=== PATIENT | female | born 1970 | race Caucasian/White ===

== ENCOUNTER 2024-02-06 00:45 | Day surgery (SDC) | payer BC, SELFPAY ==
[2024-01-31 09:17] VITALS: BMI 45.8
--- NOTE | 2024-01-31 09:25 | PC.NURSE ---
Report to the Outpatient Waiting Room, entrance under the green pavilion located off [facility], at time _0600 on date _02/06/24_. Planned Procedure Time: 0730_. Time changes happen often and if your time is changed the preop area will call you the afternoon before. - You and your visitor will be asked to self-screen and do not enter if you have any COVID symptoms. - A mask is optional within the hospital at this time. Patients may have clear liquids (water, carbonated beverages, clear teas, apple juice) until 3 hours prior to surgery with a maximum of 20 ounces. - No food from midnight until time of surgery - Infants may have breast milk until 4 hours before surgery, formula 6 hours prior to surgery. - Children will be allowed to drink immediately following surgery. If applicable, please bring a bottle or sippy cup to assist with drinking. Juice, water, soda, and popsicles are readily available. For infants on formula, please bring formula the day of surgery. Pacifiers are allowed. Take the following medications with a SIP of water the morning of surgery: LEVOTHYROXINE DO NOT STOP ANY OF YOUR OTHER PRESCRIPTION MEDICATIONS PRIOR TO SURGERY ?EXCEPT THE FOLLOWING Medications to discontinue per physician VITAMINS Date to take last dose____02/03/24 Please no make-up, nail welsh, hairspray, perfume, deodorant, or body powder the day of surgery. No jewelry (including any body piercings) or valuables the day of surgery, leave them at home. Please take a shower or bath the night before, or the morning of, surgery with an antibacterial soap. Wear comfortable, loose fitting clothing. Children are encouraged to wear pajamas. - Jewelry must be removed prior to entering the operating room. Rings and piercings that are not removed may be cut off. - The hospital will not accept responsibility for valuables. - Please leave all valuables, including medications, at home the day of surgery. If you are going home after surgery, a licensed lifter/driver must drive you home. - NO public transportation without another adult if you receive anesthesia. - We recommend that an adult stay with you for 24 hours following discharge. - We also recommend that you do not drive, make important decision, drink alcoholic beverages, or take any drugs that were not prescribed by your health care provider for at least 24 hours after your discharge time. For Pediatric surgeries, we recommend two adults accompany the child home. Follow any additional instructions given to you from your surgeon. If you or anyone in your household have experienced Covid symptoms in the past week, please notify your surgeon or the nurse liaison at the phone number below for possible testing. Telephone instructions given to PATIENT_and asked if any additional questions and then verbalized understanding. Patient advised to call surgeon office or pre surgery nurse liaison [phone] if any additional questions.
[2024-02-06] VITALS (8 sets, daily range): BP systolic 134–180; BP diastolic 62–93; PULSE 69–84; RESP 13–18; TEMP 36.1–36.2; O2SAT 91–100
--- NOTE | 2024-02-06 06:37 | WPDANESEPPF ---
Anes - Initial Pre Proc Eval Procedure: Operation Date: 02/06/24 07:30 Proposed Procedures p Septoplasty, - Dexter Nguyễn MD s Bilateral Turbinate Reduction - Dexter Nguyễn MD Date/Time: 02/06/24 06:37 Surgeon: Dexter Nguyễn MD Pre Op Diagnosis: deviated septum, turbinate hypertophy Patient Data Age: 54 Gender: F Height: 1.65 m Weight: 125 kg Allergies Allergy/AdvReac Type Severity Reaction Status Date / Time No Known Allergies Allergy Verified 01/31/24 09:10 Home Medications Medication Instructions Recorded Confirmed Type cholecalciferol (vitamin D3) 125 125 mcg PO DAILY 01/31/24 01/31/24 History mcg (5,000 unit) tablet (Vitamin D3) folic acid 1 mg tablet 1 mg PO DAILY 01/31/24 01/31/24 History levothyroxine 50 mcg tablet 50 mcg PO DAILY 01/31/24 01/31/24 History methotrexate sodium 2.5 mg tablet 10 mg PO WEEKLY 01/31/24 01/31/24 History secukinumab 150 mg/mL subcutaneous 300 mg subcut ONCE 01/31/24 01/31/24 History syringe (Cosentyx) Patient hx anesthesia problems: none Family hx anesthesia problems: none Results Review: All pre-operative results and documents have been reviewed as part of the pre-operative evaluation. [facility] Past Medical History Medical History (Updated 02/06/24 @ 06:38 by Hong Giordano MD) Hypothyroidism Morbid obesity Psoriatic arthritis Surgical History Surgical History (Updated 02/06/24 @ 06:41 by Hong Giordano MD) Hx of tonsillectomy Social History Social History Smoking status: Never smoker Alcohol intake: current Drinks per week: 4 Substance use type: other Other substance usage details: CBD DAILY Living arrangements: with family Anes - Eval Final PreProcedure Day of Procedure 02/06/24 06:37 Patient weight: morbidly obese Heart: regular rate and rhythm Lungs: clear to auscultation Airway: Mallampati scale class III and special considerations poor opening Neurological: alert and oriented Last oral intake: >/= 8 hours ASA classification: III Emergent: no Anesthetic plan: proceed Anesthesia type and monitoring: general ETT and standard monitoring Results Review: All pre-operative results and documents have been reviewed as part of the pre-operative evaluation. Informed Consent: The patient's anesthetic plan and its attendant risks and benefits were discussed with the patient/family/POA. Questions were solicited and answers provided to the satisfaction of the patient/family/POA.
--- NOTE | 2024-02-06 07:07 | PM.IMHP ---
H&P: HPI History of Present Illness Date/Time: 02/06/24 07:07 Chief Complaint: Nasal dyspnea Narrative: nasal d yspnea Review of Systems Review of Systems: All systems reviewed & are unremarkable except as noted in HPI and below PMFSH Past Medical History Medical History Hypothyroidism Morbid obesity Psoriatic arthritis Surgical History Surgical History Hx of tonsillectomy Social History Social History Smoking status: Never smoker Alcohol intake: current Drinks per week: 4 Substance use type: other Other substance usage details: CBD DAILY Living arrangements: with family Meds Home Medications and Allergies Home Medications Medication Instructions Recorded Confirmed Type cholecalciferol (vitamin D3) 125 125 mcg PO DAILY 01/31/24 01/31/24 History mcg (5,000 unit) tablet (Vitamin D3) folic acid 1 mg tablet 1 mg PO DAILY 01/31/24 01/31/24 History levothyroxine 50 mcg tablet 50 mcg PO DAILY 01/31/24 01/31/24 History methotrexate sodium 2.5 mg tablet 10 mg PO WEEKLY 01/31/24 01/31/24 History secukinumab 150 mg/mL subcutaneous 300 mg subcut ONCE 01/31/24 01/31/24 History syringe (Cosentyx) Allergies Allergy/AdvReac Type Severity Reaction Status Date / Time No Known Allergies Allergy Verified 01/31/24 09:10 Exam Narrative: right septal spur, otherwise unremarkable exam Assessment and Plan Assessment and plan (1) Deviated nasal septum: Code(s): J34.2 - Deviated nasal septum Status: Acute Plan Hermelinda is here today for correction of deviated nasal septum, turbinoplasty. r/b/a reviewed, all questions answered and she understands and agrees to proceed. refer to outpt H&P for further details.
--- NOTE | 2024-02-06 07:09 | WPDHPUPDATE1 ---
History and Physical Update Update Date/Time: 02/06/24 07:09 History and Physical has been reviewed, including an updated exam of the patient. There are NO changes in the patient's condition. Risks, benefits, and alternatives have been discussed and questions answered. Patient agrees to proceed with procedure.
[2024-02-06] MEDS: LACTATED RINGERS 1,000 ML 30 ML IV CONT (07:10)
[2024-02-06] MEDS: OXYMETAZOLINE HCL 0.05% NAS 15 ML BTL (*BKC) 1 SPRAY NASAL (07:10)
[2024-02-06] MEDS: ACETAMINOPHEN 500 MG TABLET 1000 MG PO (07:10)
[2024-02-06] MEDS: ceFAZolin 3 GM/D5W 100 ML 100 ML IVPB (07:36)
--- NOTE | 2024-02-06 08:25 | P.OP_ITS ---
Procedure Note - Detailed Date of Procedure 02/06/24 Pre-op Diagnosis deviated septum, turbinate hypertophy Post-op Diagnosis Same Procedure Performed Septoplasty bilateral inferior turbinoplasty Surgeon Dexter Nguyễn MD Anesthesia General Indications Nasal dyspnea Findings Right septal deviation. harvey splints bilaterally Description of Procedure After obtaining informed consent and proper site verification the patient was brought to the operating room and placed on the operating table in the supine position. They were placed under general endotracheal anesthesia by the anesthesia provider. The patient was then draped in standard fashion for septoplasty and turbinoplasty. A timeout was performed and the correct patient and procedure were verified. The nasal cavity was injected with 1% lidocaine with 1-100,000 epinephrine and packed with afrin-soaked cottonoid pledgets. ? Attention was then directed to the nasal septum. A hemitransfixion incision was made in the left caudal septum and a mucoperichondrial flap was elevated in the usual fashion. The flap was elevated under endoscopic visualization and the remainder of the case was performed with endoscopic assistance. Using a D- knife, an incision was made through the cartilaginous septum with care to preserve the appropriate caudal and dorsal ?L-strut? of cartilage. The cartilage was then disarticulated from the bony-cartilaginous junction and the deviated cartilage was removed. Further deviated bone and cartilage was removed from the maxillary crest and posterior bony septum with care to avoid injury to the mucoperichondrial flap using a combination of dissection and Cayden- Heraclio forceps. Once this was completed, the hemitransfixion incision was closed using simple interrupted 4-0 chromic suture. A quilting stitch to reap proximate the mucoperichondrial flaps was then placed using 4-0 plain gut suture on a Pacheco needle. ? Next attention was directed to the turbinates. Using a 0? telescope and 2mm turbinate blade microdebrider, a stab incision was made in the anterior face of the turbinate and dissection was carried posterior to perform submucosal resection. Next the turbinate was outfractured using a blunt instrument. A similar procedure was then performed on the right-hand side without difficulty. Harvey splints covered in mupirocin ointment were placed in the nasal cavity and secured to the membranous septum using a 3-0 Prolene suture. ?The patient was awakened from general anesthesia extubated in the operating room, and transported to the recovery room in stable condition without complication. Estimated Blood Loss 10 Drains No Packing Yes (Harvey splints) Pathology None sent Complications No immediate complications Condition Stable Disposition PACU
[2024-02-06] MEDS: oxyCODONE HCL (*CRX) 5 MG TAB IR PO (09:31)
== END 2024-02-06 10:05 | disposition home or self-care (01) ==
PROVIDERS: Visit Provider Otolaryngology
PROC: (CPT 30520; principal; 2024-02-06 07:30)
PROC: (CPT 30520; 2024-02-06 07:30)
DX: J34.2 Deviated nasal septum (principal); J34.3 Hypertrophy of nasal turbinates; E03.9 Hypothyroidism, unspecified; E66.01 Morbid (severe) obesity due to excess calories; Z68.42 Body mass index [BMI] 45.0-49.9, adult; Z98.890 Other specified postprocedural states
CPT/HCPCS: 30520; 30140; A9270; J0690; J1100; J1170; J2250; J2405; J2704; J3010; J7120